=== PATIENT | male | born 1975 | race Caucasian/White ===

== ENCOUNTER 2016-08-21 13:31 | Emergency (ER) | payer BC ==
[2016-08-21 13:57] VITALS: BMI 22.8
[2016-08-21 14:20] LABS: AUTOMATED BASOPHIL 0.7 % (0-2); AUTOMATED EOSINOPHIL 1.2 % (0-5); AUTOMATED LYMPH 29.9 % (17-44); AUTOMATED MONOCYTE 6.7 % (3-10); AUTOMATED NEUTROPHIL 61.5 % (45-76); MPV 7.1 fL (7.4-10.4)
[2016-08-21 14:28] LABS: BLOOD UREA NITROGEN 21 MG/DL (9-20); CALCIUM 9.7 MG/DL (8.4-10.2); CALCULATED OSMOLALITY 269 MOs/Kg (270-290); CHLORIDE 99 mEq/L (98-107); GLUCOSE 132 MG/DL (70-99); SODIUM LEVEL 137 mEq/L (137-146); TOTAL PROTEIN 7.5 G/DL (6.3-8.2)
[2016-08-21 14:36] LABS: AMORPHOUS 1+; LEUKOCYTES/URINE NEG (NEGATIVE); NITRITE/URINE NEG (NEGATIVE); RBC/URINE 0-2 (0-2); URINE OCCULT BLOOD NEG (NEG/TRACE); WBC/URINE 0-2 (0-2)
[2016-08-21 15:50] VITALS: TEMP 97.6
[2016-08-21] MEDS ORDERED: HYDROmorphone 1 MG INJECTION IV ONE ×2 (16:13→17:50)
[2016-08-21] MEDS ORDERED: ONDANSETRON HCL 4 MG/2 ML VIAL IV ONE (16:13)
--- NOTE | 2016-08-21 17:26 | EDPRACDOC ---
- General Information Information Source: Patient Mode Of Arrival: Car - History of Present Illness Onset: 1 MONTH Pain Location: Reports: RUQ Pain Context: Reports: After Eating Pain Severity: Severe Pain Quality: Reports: Cramping, Sharp, Stabbing Pain Radiation: Reports: Scapula Adult Abdominal History: Reports: Similar Pain (dx) Modifying Factors: improves with: Food Associated Signs & Symptoms: Reports: Nausea, Vomiting Oral Intake: Decreased Urinary Output: Normal <Kia Reagan - Last Filed: 08/21/16 17:28> <Susan Felix - Last Filed: 08/21/16 19:57> - General Information Chief Complaint: Abdominal Pain Stated Complaint: ABD PAIN/ ABNORMAL LABS Time Seen by Provider: 08/21/16 15:55 Allergies/Adverse Reactions: Allergies Allergy/AdvReac Type Severity Reaction Status Date / Time No Known Allergies Allergy Verified 08/21/16 13:57 - History of Present Illness HPI: PT PRESENTS TODAY WITH 5 WEEKS OF RUQ ABD PAIN. PT STATES THAT HE HAD THE SAME PAIN 2 YEARS AGO BUT COULDN'T AFFORD SURGERY FOR GALLBLADDER. PT STATES OVER THE PAST WEEK THE PAIN HAS BEEN UNBEARABLE. STATES HE WAS SEEN AT 2 DAYS AGO AND WAS TOLD HE HAD ABNORMAL LABS AND TO COME TO THE ED FOR EVALUATION. PT IN NO APPARENT DISTRESS AT THIS TIME. (Kia Reagan) ED Past Medical History - History Reviewed Yes Nurses notes reviewed and agree except as marked - Patient Medical History Cardiac History: Reports: Hypertension - Social Medical History Smoking Status: Heavy tobacco smoker (5 or more cigarettes/day or daily pipe/ cigar) <Kia Reagan - Last Filed: 08/21/16 17:28> EDM Review of Systems - Review of Systems ROS Negative Except as Marked: Yes All systems reviewed and were negative except as marked Constitutional: Fever (INTERMITTENT AND SUBJECTIVE) Respiratory: No Symptoms Reported Cardiovascular: No Symptoms Reported Gastrointestinal: Nausea, Pain, Vomiting Genitourinary: No Symptoms Reported Neurological: No Symptoms Reported Musculoskeletal: No Symptoms Reported Integumentary: No Symptoms Reported <Kia Reagan - Last Filed: 08/21/16 17:28> - Physical Exam Constitutional: Alert (Awake), No apparent distress Oriented to: Time, Person, Place - HEENT Head: Normal Eye Exam: Normal Neck: Normal, Denies Pain, Midline - Respiratory/Cardiovascular Respiratory: Normal - CTA Cardiovascular: Tachycardia - GI Auscultation: Increased Palpation: Normal Tenderness: Moderate, RUQ Morfin's Sign: Positive - Musculoskeletal Back: Normal Extremities: Normal - Integumentary Skin: Normal Lymphatics: Normal - Neurologic Cerebellar: Normal Mood Description: Normal Thought: Coherent Perception: Normal <Kia Reagan - Last Filed: 08/21/16 17:28> - Results 08/21/16 13:57 08/21/16 13:57 <Kia Reagan - Last Filed: 08/21/16 17:28> - Re-evaluation Re-evaluation 3 Re-evaluation Time: 19:55 (PATIENT COMFORTABLE ON ED GURNEY) - Results 08/21/16 13:57 08/21/16 13:57 - Diagnostic Imaging Abdomen Image interpreted by: Radiologist <Susan Felix - Last Filed: 08/21/16 19:57> - Re-evaluation Re-evaluation 3 I WENT TO DISCUSS PATIENT'S TEST RESULTS WITH HIM AT THIS TIME. I STATED THAT WE HAD GOOD NEWS THAT HIS RIGHT UPPER QUADRANT ULTRASOUND AND HIS CAT SCANS OF HIS ABDOMEN PELVIS WERE WITHIN NORMAL LIMITS AND WE HAD NOT DISCOVER ANYTHING FROM AT THIS TIME. PATIENT BECAME AGITATED AND BELLIGERENT AGGRESSIVE STANCE. AT THIS TIME WE WILL REMOVE HIS IV IN THE PATIENT WILL BE DISCHARGED HOME IS NOT AMENABLE TO DISCHARGE INSTRUCTIONS OR A CONVERSATION REGARDING A POSSIBLE DIAGNOSIS. (Susan Felix) - Results WBC 11.3 xk/uL (3.8-10.8) H 08/21/16 13:57 RBC 5.12 xM/uL (4.70-6.10) 08/21/16 13:57 Hgb 15.6 g/dL (14.0-18.0) 08/21/16 13:57 Hct 46.3 % (42-52) 08/21/16 13:57 MCV 90 fL (80-94) 08/21/16 13:57 MCH 30.6 pg (27-32) 08/21/16 13:57 MCHC 33.8 g/dl (33-36) 08/21/16 13:57 RDW 13.6 % (11.5-14.5) 08/21/16 13:57 Plt Count 413 xk/uL (130-400) H 08/21/16 13:57 MPV 7.1 fL (7.4-10.4) L 08/21/16 13:57 Neut % (Auto) 61.5 % (45-76) 08/21/16 13:57 Lymph % (Auto) 29.9 % (17-44) 08/21/16 13:57 [place] % (Auto) 6.7 % (3-10) 08/21/16 13:57 Eos % (Auto) 1.2 % (0-5) 08/21/16 13:57 Baso % (Auto) 0.7 % (0-2) 08/21/16 13:57 Absolute Neuts (auto) 6.89 xk/uL (1.7-8.2) 08/21/16 13:57 Absolute Lymphs (auto) 3.28 xk/uL (0.65-4.75) 08/21/16 13:57 Sodium 137 mEq/L (137-146) 08/21/16 13:57 Potassium 4.2 mEq/L (3.5-5.1) 08/21/16 13:57 Chloride 99 mEq/L (98-107) 08/21/16 13:57 Carbon Dioxide 29 mMOL/L (22-33) 08/21/16 13:57 Anion Gap 13 mEq/L (8-16) 08/21/16 13:57 BUN 21 MG/DL (9-20) H 08/21/16 13:57 Creatinine 0.90 MG/DL (0.66-1.25) 08/21/16 13:57 Estimated GFR (MDRD) > 60 mL/min (>=60) 08/21/16 13:57 Glucose 132 MG/DL (70-99) H 08/21/16 13:57 Calculated Osmolality 269 MOs/Kg (270-290) L 08/21/16 13:57 Calcium 9.7 MG/DL (8.4-10.2) 08/21/16 13:57 Total Bilirubin 0.8 MG/DL (0.2-1.3) 08/21/16 13:57 AST 40 IU/L (17-59) 08/21/16 13:57 ALT 58 IU/L (21-72) 08/21/16 13:57 Alkaline Phosphatase 80 IU/L (38-126) 08/21/16 13:57 Total Protein 7.5 G/DL (6.3-8.2) 08/21/16 13:57 Albumin 4.3 G/DL (3.5-5.0) 08/21/16 13:57 Lipase 736 U/L (23-300) H 08/21/16 13:57 Urine Color Yellow 08/21/16 13:58 Urine Clarity Clear 08/21/16 13:58 Urine pH 6.0 (5.0-8.0) 08/21/16 13:58 Ur Specific [place] 1.010 (1.003-1.035) 08/21/16 13:58 Urine Protein Neg (NEG/TRACE) 08/21/16 13:58 Urine Glucose (UA) Neg (NEGATIVE) 08/21/16 13:58 Urine Ketones Neg (NEGATIVE) 08/21/16 13:58 Urine Occult Blood Neg (NEG/TRACE) 08/21/16 13:58 Urine Nitrite Neg (NEGATIVE) 08/21/16 13:58 Urine Bilirubin Neg (NEGATIVE) 08/21/16 13:58 Urine Urobilinogen <2.0 MG/DL (0-1) 08/21/16 13:58 Ur Leukocyte Esterase Neg (NEGATIVE) 08/21/16 13:58 Urine RBC 0-2 (0-2) 08/21/16 13:58 Urine WBC 0-2 (0-2) 08/21/16 13:58 Amorphous Sediment 1+ 08/21/16 13:58 Urine Bacteria Few (NEG/FEW) 08/21/16 13:58 Urine Mucus Sm amt (NEG/OCC) 08/21/16 13:58 Lab Results 08/21/16 08/21/16 08/21/16 13:58 13:57 13:57 WBC 11.3 H RBC 5.12 Hgb 15.6 Hct 46.3 MCV 90 MCH 30.6 MCHC 33.8 RDW 13.6 Plt Count 413 H MPV 7.1 L Neut % (Auto) 61.5 Lymph % (Auto) 29.9 [place] % (Auto) 6.7 Eos % (Auto) 1.2 Baso % (Auto) 0.7 Absolute Neuts (auto) 6.89 Absolute Lymphs (auto) 3.28 Sodium Potassium Chloride Carbon Dioxide Anion Gap BUN Creatinine Estimated GFR (MDRD) Glucose Calculated Osmolality Calcium Total Bilirubin AST ALT Alkaline Phosphatase Total Protein Albumin Lipase 736 H Urine Color Yellow Urine Clarity Clear Urine pH 6.0 Ur Specific [place] 1.010 Urine Protein Neg Urine Glucose (UA) Neg Urine Ketones Neg Urine Occult Blood Neg Urine Nitrite Neg Urine Bilirubin Neg Urine Urobilinogen <2.0 Ur Leukocyte Esterase Neg Urine RBC 0-2 Urine WBC 0-2 Amorphous Sediment 1+ Urine Bacteria Few Urine Mucus Sm amt 08/21/16 13:57 WBC RBC Hgb Hct MCV MCH MCHC RDW Plt Count MPV Neut % (Auto) Lymph % (Auto) [place] % (Auto) Eos % (Auto) Baso % (Auto) Absolute Neuts (auto) Absolute Lymphs (auto) Sodium 137 Potassium 4.2 Chloride 99 Carbon Dioxide 29 Anion Gap 13 BUN 21 H Creatinine 0.90 Estimated GFR (MDRD) > 60 Glucose 132 H Calculated Osmolality 269 L Calcium 9.7 Total Bilirubin 0.8 AST 40 ALT 58 Alkaline Phosphatase 80 Total Protein 7.5 Albumin 4.3 Lipase Urine Color Urine Clarity Urine pH Ur Specific [place] Urine Protein Urine Glucose (UA) Urine Ketones Urine Occult Blood Urine Nitrite Urine Bilirubin Urine Urobilinogen Ur Leukocyte Esterase Urine RBC Urine WBC Amorphous Sediment Urine Bacteria Urine Mucus (Kia Reagan) (Susan Felix) - Diagnostic Imaging Abdomen 08/21/16 19:28 Patient Name: NUBIA FISCHER LOC: ED : 1975 AGE: 41 Order Date:08/21/16 Date of Service:03/30 Report # [id number] Ord Physician: Kia Reagan Exam # [id number] Emergency Physician: Susan Felix MD Exam(s): [id number] CT/CT ABD-PELV W/IV CM CLINICAL DATA: Nausea, vomiting and diarrhea today. Mildly elevated white count. Elevated lipase. Initial encounter. EXAM: CT ABDOMEN AND PELVIS WITH CONTRAST TECHNIQUE: Multidetector CT imaging of the abdomen and pelvis was performed using the standard protocol following bolus administration of intravenous contrast. CONTRAST: 100 cc Isovue 370. COMPARISON: CT abdomen and pelvis 04/17/2009. FINDINGS: The lung bases are clear. No pleural or pericardial effusion. The pancreas enhances homogeneously. There is no fluid collection or stranding about the pancreas. The liver, gallbladder and biliary tree appear normal. The adrenal glands and spleen are unremarkable. A 0.4 cm nonobstructing stone is identified in the midpole of the right kidney. Tiny cyst is seen off the anterior aspect of the midpole of the left kidney. The stomach, small and large bowel and appendix are unremarkable. No lymphadenopathy or fluid. Urinary bladder, seminal vesicles and prostate gland appear normal. Mild appearing degenerative disc disease is seen at L5-S1. Imaged bones are otherwise unremarkable. IMPRESSION: No acute abnormality. The pancreas appears normal. Nonobstructing stone midpole right kidney, unchanged. Electronically Signed By: Bridger Toure M.D. On: 08/21/2016 18:54 Electronically Signed By: Bridger Lynch MD Electronically Signed Date/Time: 857 Dictate Date/Time: 08/21/16 185 Technologist: Hannah Del Toro Transcribed By: [place] Transcribed Date/Time: 08/21/16185308/21/16 19:30 Patient Name: NUBIA FISCHER LOC: ED : 1975 AGE: 41 Order Date:08/21/16 Date of Service:03/30 Report # [id number] Ord Physician: Kia Reagan Exam # [id number] Emergency Physician: Susan Felix MD Exam(s): [id number] US/US GALLBLADDER-BILIARY (RUQ) CLINICAL DATA: Severe right upper quadrant pain. EXAM: US ABDOMEN LIMITED - RIGHT UPPER QUADRANT COMPARISON: FINDINGS: Gallbladder: No gallstones or wall thickening visualized. No sonographic Morfin sign noted by safe and vault mechanic (although patient had received pain medication). Common bile duct: Diameter: 3.5 mm Liver: No focal lesion identified. Within normal limits in parenchymal echogenicity. IMPRESSION: Normal exam. Electronically Signed By: Huma Brown M.D. On: 08/21/2016 17:40 Electronically Signed By: Huma Brown MD Electronically Signed Date/Time: 743 Dictate Date/Time: 08/21/16 173 Technologist: Becky Roe Transcribed By: [place] Transcribed Date/Time: 08/21/16 1740 (Susan Felix) <Kia Reagan - Last Filed: 08/21/16 17:28> - Departure Disposition: Home Education/Counseling Given To: Patient Education/Counseling Given Regarding: Diagnosis, Treatment, Prognosis <Susan Felix - Last Filed: 08/21/16 19:57> - Departure Condition: Good Final Diagnosis: Abdominal pain Instructions: Acute Abdominal Pain (ED) Referrals: Daren Howard PA [Primary Care Provider] - One Week Connor Garza MD [Staff Physician] - One Week
--- NOTE | 2016-08-21 17:43 | DIRPT ---
CLINICAL DATA: Severe right upper quadrant pain. EXAM: US ABDOMEN LIMITED - RIGHT UPPER QUADRANT COMPARISON: FINDINGS: Gallbladder: No gallstones or wall thickening visualized. No sonographic Morfin sign noted by press set up person (although patient had received pain medication). Common bile duct: Diameter: 3.5 mm Liver: No focal lesion identified. Within normal limits in parenchymal echogenicity. IMPRESSION: Normal exam. Electronically Signed By: Huma Brown M.D. On: 08/21/2016 17:40
[2016-08-21] MEDS ORDERED: Pharmacy Review for Metformin - IV Contrast Given SCH (18:00)
--- NOTE | 2016-08-21 18:57 | DIRPT ---
CLINICAL DATA: Nausea, vomiting and diarrhea today. Mildly elevated white count. Elevated lipase. Initial encounter. EXAM: CT ABDOMEN AND PELVIS WITH CONTRAST TECHNIQUE: Multidetector CT imaging of the abdomen and pelvis was performed using the standard protocol following bolus administration of intravenous contrast. CONTRAST: 100 cc Isovue 370. COMPARISON: CT abdomen and pelvis 04/17/2009. FINDINGS: The lung bases are clear. No pleural or pericardial effusion. The pancreas enhances homogeneously. There is no fluid collection or stranding about the pancreas. The liver, gallbladder and biliary tree appear normal. The adrenal glands and spleen are unremarkable. A 0.4 cm nonobstructing stone is identified in the midpole of the right kidney. Tiny cyst is seen off the anterior aspect of the midpole of the left kidney. The stomach, small and large bowel and appendix are unremarkable. No lymphadenopathy or fluid. Urinary bladder, seminal vesicles and prostate gland appear normal. Mild appearing degenerative disc disease is seen at L5-S1. Imaged bones are otherwise unremarkable. IMPRESSION: No acute abnormality. The pancreas appears normal. Nonobstructing stone midpole right kidney, unchanged. Electronically Signed By: Bridger Toure M.D. On: 08/21/2016 18:54
[2016-08-21 19:13] VITALS: BP 152/95; PULSE 110
== END 2016-08-21 20:01 | disposition home or self-care (01) ==
LOC: ED 13:31
DX: R10.9 Unspecified abdominal pain (principal)
CPT/HCPCS: 36415; 74177; 76705; 80053; 81001; 83690; 85025; 96374; 96375; 96376; 99284; A9698; J1170; J2405